=== PATIENT | male | born 1970 | race Caucasian/White ===

== ENCOUNTER 2018-04-10 08:06 | Emergency (ER) | payer BC ==
[2018-04-10 08:23] VITALS: BP 141/86
--- NOTE | 2018-04-10 08:27 | UC ---
Lower Extremity/Ankle HPI - HPI Summary HPI Summary: Patient presents with progressive left foot pain. Patient was diagnosed with plantar fasciitis about 2 weeks ago. Patient was given naproxen that he states makes him very drowsy so he doesn't take. Patient has been taking Tylenol every 6 hours. Patient states progressively he's developing some discomfort in his left calf and his right hip. Patient states he is walking with a limp. Patient states his boss sent him home from work. Patient denies numbness or tingling in his toes beyond his normal paresthesias from diabetes. Patient does not take insulin. Patient denies any trauma. Patient pain in the calf states it feels stiff. Patient states it thinks it's from the waist been walking however he does have a history of DVTs. Patient is not currently anticoagulated. Patient without any fevers, redness, or other complaints. Pt's medications reviewed this visit - History of Current Complaint Chief Complaint: UCLowerExtremity Stated Complaint: LEFT FOOT PAIN Hx Obtained From: Patient Onset/Duration: Gradual Onset Severity Initially: Moderate Severity Currently: Moderate Pain Intensity: 10 Pain Scale Used: 0-10 Numeric Aggravating Factor(s): Standing, Ambulation Able to Bear Weight: Yes - with limp - Allergies/Home Medications Allergies/Adverse Reactions: Allergies Allergy/AdvReac Type Severity Reaction Status Date / Time adhesive tape Allergy Hives Verified 04/10/18 08:16 pollen Allergy Congestion Uncoded 04/10/18 08:15 Home Medications: Home Medications Naproxen [Naproxen 500 mg tab] 500 mg PO BID PRN 04/10/18 [History Confirmed ] Omeprazole CAP* [Prilosec CAP* 20 MG] 40 mg PO BID 04/10/18 [History Confirmed 04/10/18] Pravastatin Sodium 20 mg PO DAILY 04/10/18 [History Confirmed 04/10/18] PMH/Surg Hx/FS Hx/Imm Hx Previously Healthy: Yes Endocrine History: Diabetes - Surgical History Surgical History: Yes Surgery Procedure, Year, and Place: cardiac cath with burning - Family History Known Family History: Positive: Cardiac Disease - Social History Occupation: Employed Full-time Lives: With Family Alcohol Use: None Substance Use Type: None Smoking Status (MU): Never Smoked Tobacco - Immunization History Most Recent Influenza Vaccination: 02/2017 Review of Systems Constitutional: Negative Skin: Negative Musculoskeletal: Other: - left foot pain All Other Systems Reviewed And Are Negative: Yes Physical Exam - Summary Physical Exam Summary: Vital Signs Reviewed: Yes A+Ox3, discomfort with ambulation Eyes: Conjunctiva Clear ENT: Hearing grossly normal neck: supple Respiratory: Positive: CTA throughout no w/r No respiratory distress, No accessory muscle use Cardiovascular: skin color reflect adequate perfusion, RRR nl s1 s2 no m/r 2+ DP, PT Musculoskeletal Exam: HOANG x 4 without difficulty + flex/ext knee, ankle +TTP left mid calf. no achilles pain, + TTP arch left foot with direct palp and ROM Neurological: Positive: Alert, ambulatory without difficulty + great toe ext, Psychological: Positive: Normal Response To Family Skin: Positive: no lesions, no erythema Triage Information Reviewed: Yes Vital Signs: Initial Vital Signs Temp 97.6 F 04/10/18 08:19 Pulse 79 04/10/18 08:19 Resp 18 04/10/18 08:19 BP 141/86 04/10/18 08:19 Pulse Ox 98 04/10/18 08:19 Diagnostics - Radiology No standard instances Radiology Interpretation Completed By: Radiologist - No DVT Lower Extremity Course/Dx - Course Course Of Treatment: Pt presents with progressive discomfort left foot - dx with plantar fascitis. Pt with prnounced limp second to pain - sent home from work. Pt not toleraing Naproxyn. Taking APAP. will check us for DVT - calf pain - likely positional related but h/io dvt. crutches. sports med f/u - Tomorrow 2pm [facility]. BP elevated - pt in discomfort - f/u with PCP - Differential Dx/Diagnosis Provider Diagnoses: plantar fascitis Discharge - Sign-Out/Discharge Documenting (check all that apply): Patient Departure All imaging exams completed and their final reports reviewed: Yes - Discharge Plan Condition: Stable Disposition: HOME Patient Education Materials: Plantar Fasciitis Exercises (GEN), Plantar Fasciitis (ED) Forms: *Work Release Referrals: Adam Chavarria MD [Medical Doctor] - ([facility] at [address] [address] TOMORROW 04/11/18 at 2pm Please arrive 10 minutes early for paperwork ) Efrain Sinclair PA [Primary Care Provider] - Additional Instructions: - wear crutches until you can walk normally without a limp - Okay to take Tylenol every 6 hours for pain. Take with food - Take prednisone as prescribed. This will make your blood sugars increase while you are taking this medication - Okay to take ibuprofen (motrin, Advil) 400mg every 6 hours for pain -take with food - You have an appointment tomorrow at 2pm with Dr. Chavarria from sports medicine. Keep this appointment or contact his office if you need to change - Billing Disposition and Condition Condition: STABLE Disposition: Home
--- NOTE | 2018-04-10 09:59 | RAD ---
INDICATION: LEFT lower extremity calf pain. COMPARISON: No relevant prior exams available on the [facility] PACS for comparison. TECHNIQUE: Schwarz scale, color Doppler, and spectral analysis of the deep veins of the LEFT lower extremity. Vessel compression, phasicity, and augmentation assessed. REPORT: The LEFT common femoral, great saphenous, profunda femoral, femoral, popliteal, peroneal, and posterior tibial veins are patent. Patency of the RIGHT common femoral vein documented. IMPRESSION: No evidence for LEFT lower extremity deep venous thrombosis.
== END 2018-04-10 10:15 | disposition home or self-care (01) ==
LOC: UCCORT 08:06
DX: M72.2 Plantar fascial fibromatosis (principal); E11.69 Type 2 diabetes mellitus with other specified complication; R20.2 Paresthesia of skin; Z86.718 Personal history of other venous thrombosis and embolism
CPT/HCPCS: 99212; G0463

== ENCOUNTER 2018-07-04 07:18 | Emergency (ER) | payer BC ==
[2018-07-04 07:45] LABS: Influenza A Molecular POSITIVE (Negative)
--- NOTE | 2018-07-04 07:49 | UC ---
General HPI - HPI Summary HPI Summary: Patient c/o of shakes, chills, N/V/D and cough that started two days ago. Last diarrhea and vomiting episode stopped yesterday. Is able to tolerate clears and bland diet. Has not checked his sugars lately. Did not take his morning meds yet, including his BP meds. Also with productive cough. No SOB or CP. This morning he woke with body aches and feeling dizzy. 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 No fevers. +Chills. Is taking tylenol and mucinex. Used an inhaler years ago for when he had bronchitis. PMHx: DM, HTN Meds: Reviewed - History of Current Complaint Chief Complaint: UCGeneralIllness Stated Complaint: COUGH, VOMITING, BODY ACHES Time Seen by Provider: 07/04/18 07:33 Pain Intensity: 3 - Allergy/Home Medications Allergies/Adverse Reactions: Allergies Allergy/AdvReac Type Severity Reaction Status Date / Time adhesive tape Allergy Hives Verified 07/04/18 07:30 pollen Allergy Congestion Uncoded 07/04/18 07:30 Home Medications: Home Medications Acetaminophen [Pain Reliever] 1,000 mg PO Q4HR PRN 07/04/18 [History Confirmed 07/04/18] guaiFENesin [Mucinex] 1,200 mg PO ONCE PRN 07/04/18 [History Confirmed 07/04/18] PMH/Surg Hx/FS Hx/Imm Hx Endocrine History: Diabetes Cardiovascular History: Hypertension - Surgical History Surgical History: Yes Surgery Procedure, Year, and Place: cardiac cath with burning - Family History Known Family History: Positive: Cardiac Disease - Social History Alcohol Use: None Substance Use Type: None Smoking Status (MU): Never Smoked Tobacco - Immunization History Most Recent Influenza Vaccination: 02/2017 Review of Systems All Other Systems Reviewed And Are Negative: Yes Constitutional: Positive: Chills Respiratory: Positive: Cough Gastrointestinal: Positive: Vomiting, Diarrhea, Nausea Is Patient Immunocompromised?: No Physical Exam Triage Information Reviewed: Yes Appearance: Well-Appearing Vital Signs: Initial Vital Signs Temp 97.8 F 07/04/18 07:26 Pulse 95 07/04/18 07:26 Resp 20 07/04/18 07:26 BP 133/76 07/04/18 07:26 Pulse Ox 97 07/04/18 07:26 Vital Signs Reviewed: Yes Eye Exam: Normal Eyes: Positive: Conjunctiva Clear ENT: Positive: Normal ENT inspection, TMs normal Neck exam: Normal Neck: Positive: Supple, Nontender Respiratory: Positive: Lungs clear, Normal breath sounds, No respiratory distress, No accessory muscle use Cardiovascular: Positive: RRR, No Murmur Abdomen Description: Positive: Other: - diffuse tenderness, soft, ND, no rebound or gaurding Bowel Sounds: Positive: Present Musculoskeletal Exam: Normal Skin Exam: Normal Course/Dx - Course Course Of Treatment: This is a 48 yr old with PMHx of DM and HTN who presents with N/V/D and URI symptoms. Assessment. Nontoxic appearing. INfluenza: A. Orthostatics: Mildly orthostatic. Plan. Start Tamiflu as prescribed. Recommend continued supportive care including increase in fluid intake. Continue over the counter cough suppressant. If symptoms persist or worsen, return to ER or urgent care or follow up with PCP. Hold lisinopril dose today and tomorrow - Diagnoses Provider Diagnosis: Influenza A Discharge - Sign-Out/Discharge Documenting (check all that apply): Patient Departure All imaging exams completed and their final reports reviewed: No Studies - Discharge Plan Condition: Fair Disposition: HOME Prescriptions: Oseltamivir SUSP 75 MG dose* [Tamiflu SUSP 75 MG dose*] 75 mg PO BID #10 oral.syrin Forms: *Work Release Referrals: Efrain Sinclair PA [Primary Care Provider] - Additional Instructions: Start Tamiflu as prescribed Recommend continued supportive care including increase in fluid intake Continue over the counter cough suppressant If symptoms persist or worsen, return to ER or urgent care or follow up with PCP Hold lisinopril medication today and tomorrow - Billing Disposition and Condition Condition: FAIR Disposition: Home
[2018-07-04 08:07] VITALS: BP 107/63
== END 2018-07-04 08:21 | disposition home or self-care (01) ==
LOC: UCCORT 07:18
DX: J09.X2 Influenza due to identified novel influenza A virus with other respiratory manifestations (principal); E11.9 Type 2 diabetes mellitus without complications; I10 Essential (primary) hypertension
CPT/HCPCS: 99212; G0463

== ENCOUNTER 2019-08-18 07:11 | Emergency (ER) | payer BC, OTHER ==
[2019-08-18 07:28] VITALS: BP 121/79
--- NOTE | 2019-08-18 07:37 | UC ---
Lower Extremity/Ankle HPI - HPI Summary HPI Summary: 49 yo male with DM and peripheral neuropathy presents with heel pain (R) x 1 1/ 2 weeks Currently 02/18 with non wt bearing and 03/20 with wt bearing no injury recalled - History of Current Complaint Chief Complaint: UCLowerExtremity Stated Complaint: RIGHT HEEL/FOOT PAIN Time Seen by Provider: 08/18/19 07:32 Hx Obtained From: Patient Onset/Duration: Gradual Onset, Lasting Weeks - 1 1/2 Severity Initially: Mild Severity Currently: Severe Pain Intensity: 9 Pain Scale Used: 0-10 Numeric Aggravating Factor(s): Standing, Ambulation Alleviating Factor(s): Rest Able to Bear Weight: Yes - will altered gait Feet (Multiple View): 1 - tender 2 - heel tender with compression - Allergies/Home Medications Allergies/Adverse Reactions: Allergies Allergy/AdvReac Type Severity Reaction Status Date / Time adhesive tape Allergy Hives Verified 08/18/19 07:22 pollen Allergy Congestion Uncoded 08/18/19 07:22 Home Medications: Home Medications Glimepiride (NF) 2 mg PO DAILY 11/28/15 [History Confirmed 08/18/19] Metformin HCl [Fortamet] 1,000 mg PO BID 11/28/15 [History Confirmed 08/18/19] lisinopriL [Lisinopril 2.5 MG-] 20 mg PO DAILY 11/28/15 [History Confirmed 08/17] Omeprazole CAP (NF) [Prilosec CAP* 20 MG] 40 mg PO BID 04/10/18 [History Confirmed 08/18/19] Pravastatin Sodium 20 mg PO DAILY 04/10/18 [History Confirmed 08/18/19] Acetaminophen [Pain Reliever] 1,000 mg PO Q6H PRN 07/04/18 [History Confirmed ] Gabapentin CAP(*) [Neurontin 300 CAP(*)] 600 mg PO TID 08/18/19 [History Confirmed 08/18/19] Semaglutide [Ozempic] 1 mg SQ SA 08/18/19 [History Confirmed 08/18/19] PMH/Surg Hx/FS Hx/Imm Hx Previously Healthy: Yes Endocrine History: Diabetes, Dyslipidemia Cardiovascular History: Hypertension Psychological History: Other Other Psychological History: peripheral neuropathy - Surgical History Surgical History: Yes Surgery Procedure, Year, and Place: Cardiac Ablation, ~2007 - Family History Known Family History: Positive: Cardiac Disease, Hypertension, Diabetes - Social History Alcohol Use: None Substance Use Type: None Smoking Status (MU): Never Smoked Tobacco - Immunization History Most Recent Influenza Vaccination: 02/2017 Review of Systems All Other Systems Reviewed And Are Negative: Yes Constitutional: Positive: Negative Eyes: Positive: Negative ENT: Positive: Negative Respiratory: Positive: Negative Cardiovascular: Positive: Negative Gastrointestinal: Positive: Negative Genitourinary: Positive: Negative Motor: Positive: Negative Neurovascular: Positive: Negative Musculoskeletal: Positive: Negative Neurological/Mental Status: Positive: Negative Psychological: Positive: Negative Physical Exam Triage Information Reviewed: Yes Appearance: Well-Appearing, No Pain Distress, Well-Nourished Vital Signs: Initial Vital Signs Temp 97.9 F 08/18/19 07:20 Pulse 80 08/18/19 07:20 Resp 16 08/18/19 07:20 BP 121/79 08/18/19 07:20 Pulse Ox 100 08/18/19 07:20 Vital Signs Reviewed: Yes Eyes: Positive: Conjunctiva Clear ENT: Positive: Hearing grossly normal. Negative: Nasal congestion, Nasal drainage, Trismus, Muffled voice, Hoarse voice Dental Exam: Normal Neck: Positive: Supple, Nontender, No Lymphadenopathy Respiratory: Positive: Lungs clear, Normal breath sounds, No respiratory distress, No accessory muscle use Cardiovascular: Positive: RRR, No Murmur Abdomen Description: Positive: Nontender, No Organomegaly Musculoskeletal: Positive: ROM Intact, No Edema, Other: - see image Neurological: Positive: Alert Psychological Exam: Normal Skin Exam: Normal Diagnostics - Radiology No standard instances Radiology Interpretation Completed By: Radiologist Summary of Radiographic Findings: calcaneal spurs Lower Extremity Course/Dx - Differential Dx/Diagnosis Provider Diagnosis: Plantar fasciitis, right Discharge ED - Sign-Out/Discharge Documenting (check all that apply): Patient Departure All imaging exams completed and their final reports reviewed: Yes - Discharge Plan Condition: Stable Disposition: HOME Patient Education Materials: Plantar Fasciitis (ED), Plantar Fasciitis Exercises (GEN) Forms: *Work Release Referrals: Efrain Sinclair PA [Primary Care Provider] - As Soon As Possible - Billing Disposition and Condition Condition: STABLE Disposition: Home
== END 2019-08-18 08:21 | disposition home or self-care (01) ==
LOC: UCCORT 07:11
DX: M72.2 Plantar fascial fibromatosis (principal); E11.9 Type 2 diabetes mellitus without complications; E78.5 Hyperlipidemia, unspecified; I10 Essential (primary) hypertension; Z79.84 Long term (current) use of oral hypoglycemic drugs; Z91.09 Other allergy status, other than to drugs and biological substances; Z79.899 Other long term (current) drug therapy
CPT/HCPCS: 99212; G0463